=== PATIENT | male | born 1955 | race Caucasian/White ===

== ENCOUNTER 2016-11-19 12:06 | Observation (INO) ==
[2016-11-19] MEDS ORDERED: ASPIRIN 325 MG TABLET PO STA (12:59)
[2016-11-19] MEDS ORDERED: ENOXAPARIN 100 MG/ML SYRINGE SUBCUT STA (12:59)
[2016-11-19 13:18] LABS: Basophils % 0.6 % (0.0-0.8); Eosinophils # 0.3 10*3/uL (0.0-0.87); Eosinophils % 3.7 % (0.00-10.9); Hematocrit 42.1 VOL% (42.0-52.0); Hemoglobin 14.6 GM/DL (14.0-18.0); Immature Granulocytes % 0.3 %; Immature Granulocytes Absolute 0.02 #; Lymphocytes # 1.6 10*3/uL (1.4-4.0); Mean Corpuscular HGB Conc 34.7 GM/DL (32-36); Mean Corpuscular Hemoglobin 30 PG (27-34); Mean Corpuscular Volume 85.1 FL (87-102); Mean Platelet Volume 10.5 FL (9.6-12.0); Monocytes # 0.9 10*3/uL (0.11-0.8); Monocytes % 13.1 % (1.7-12.7); Neutrophils % 58.3 % (38.7-73.9); Platelet Count 195 10*3/uL (130-400); Red Blood Count 4.95 10*6/uL (3.8-5.5); Red Cell Distribution Width 12.5 % (9.3-17.3); White Blood Count 6.8 10*3/uL (4.5-13.71)
[2016-11-19] MEDS ORDERED: ENOXAPARIN 100 MG/ML SYRINGE SUBCUT ONE (13:18)
--- NOTE | 2016-11-19 13:31 | XRay Report ---
XR chest 2V Date: 11/19/2016 1:00 PM History: Chest pain Comparison: 01/08/2011 Technique: PA and lateral chest Findings: The heart is normal in size. The lungs are clear with unremarkable mediastinum. Degenerative changes are noted. Impression: No acute cardiopulmonary pathology identified. PROCEDURE INTERPRETED AT [facility] DEPARTMENT OF RADIOLOGY Final Report Signed by: Dr. Susie Aguilar
[2016-11-19 13:40] LABS: Albumin 3.3 G/DL (3.4-5.0); Bilirubin,Total 0.4 MG/DL (0.2-1.0); Calcium 9.5 MG/DL (8.5-10.1); Magnesium 2.2 MG/DL (1.8-2.4); Osmolality,Calculated 286.5 MOS/KG (273-304); Potassium 4.4 MMOL/L (3.5-5.1); Total Protein 7.3 G/DL (6.4-8.3)
--- NOTE | 2016-11-19 13:59 | Emergency Department Note ---
Catarino Lee Meredith, am scribing for, and in the presence of, Roverto Cantrell MD 12:57. Tamia Lee Phillip K, MD, personally performed the services described in this documentation, ascribed by Pippa Toribio in my presence, and it is both accurate and complete [id number] . Arrival - Arrival Chief Complaint: Chest Pain Stated Complaint: chest pain,left arm tingling,SOB ED Nursing Triage Note: Pt c/o Chest pain, left arm pain/tingling, SOB, and CUTLER x 1 wk. Mode of Arrival: Ambulatory Limitations: No Limitations Source: Patient, Significant other (), RN Notes Reviewed - History of Present Illness HPI Narrative: Pt is a 61 y/o white male reporting to the ED with c/o left-sided chest pain and left arm pain/tingling for the past week. His symptoms are worse at night. Pt confirms exacerbation of chest pain with deep inspiration. He has had diaphoresis, shortness of breath, headache, and pain in bilateral shoulder blades but he denies any nausea, vomiting, cough, or fever. states he has always been a very active person but lately he doesn't want to go do anything and is wanting to take naps during the day. He has a history of HTN, HLD, and GERD. Pt takes ASA daily. Onset (ago): week(s) Allergies/Adverse Reactions: Allergies Allergy/AdvReac Type Severity Reaction Status Date / Time Iodinated Contrast Media - Allergy RASH Verified 11/19/16 12:12 IV Dye chol. Pill? AdvReac Unknown/Unable Uncoded 11/19/16 12:12 to obtain Home Medications: Home Medications Medication Instructions Recorded Confirmed Type Omeprazole [Prilosec] 20 mg PO DAILY 11/19/16 11/19/16 History Pravastatin Sodium 40 mg PO DAILY 11/19/16 11/19/16 History amLODIPine/BENAZEPRIL 5-20 [Lotrel 1 capsule PO DAILY 11/19/16 11/19/16 History 5-20] Review of System - Review of System 12 point system: reviewed and no additional remarkable complaints except as stated - Review of System Constitutional: Present: as per HPI, diaphoresis. Absent: fever Respiratory: Present: as per HPI, other (SOB). Absent: cough Cardiovascular: Present: as per HPI, chest pain Gastrointestinal: Present: as per HPI. Absent: nausea, vomiting Musculoskeletal: Present: as per HPI, arm pain (left arm pain and tingling), other (bilateral shoulder blades) Neurological: Present: as per HPI, headache Medical,Surgical,& Family Hx - Medical History Cardio: History of: Hypertension Endocrine: History of: Dyslipidemia Gastrointestinal: History of: GERD - Social History Smoking Status: Never smoker Exam Vital Signs: Vital Signs Temperature 97.4 F L 11/19/16 12:13 Pulse Rate 68 11/19/16 12:30 Respiratory Rate 18 11/19/16 12:30 Blood Pressure 176/93 11/19/16 12:13 O2 Sat by Pulse Oximetry 99 11/19/16 12:13 - General General appearance: alert, in no apparent distress, obese - Head Head exam: Present: atraumatic, normocephalic - Eye Eye exam: Present: normal appearance, PERRL, EOMI - ENT ENT exam: Present: mucous membranes moist, normal external ear exam - Neck Neck exam: Present: full ROM, trachea midline. Absent: tenderness, meningismus , lymphadenopathy, thyromegaly - Chest Chest inspection: Present: symmetric chest wall rise. Absent: tenderness, rash - Respiratory Respiratory exam: Present: normal lung sounds bilaterally. Absent: respiratory distress - Cardiovascular Cardiovascular exam: Present: regular rate, normal rhythm, normal heart sounds. Absent: murmur, rubs, gallop - Abdominal Exam Abdominal exam: Present: soft, normal bowel sounds. Absent: distention, tenderness - Extremities Exam Extremities exam: Present: full ROM, normal capillary refill. Absent: tenderness, pedal edema, calf tenderness - Back Exam Back exam: Present: full ROM. Absent: tenderness - Neurological Exam Neurological exam: Present: alert, oriented X3, CN II-XII intact. Absent: motor sensory deficit - Psychiatric Psychiatric exam: Present: normal affect, normal mood - Skin Skin exam: Present: warm, dry, intact, normal color Course Course Narrative: Discussed with Dr. Sanon who will evaluate in the ED. Results - Labs CBC & BMP: 11/19/16 13:05 11/19/16 13:05 Lab Results: I have reviewed the patients labs Labs: Laboratory Tests 11/19/16 13:05 WBC 6.8 RBC 4.95 Hgb 14.6 Hct 42.1 MCV 85.1 L Plt Count 195 [place] % (Auto) 13.1 H [place] # (Auto) 0.9 H Laboratory Tests 11/19/16 11/19/16 13:05 13:05 Sodium 139 Potassium 4.4 Chloride 105 Carbon Dioxide 24 BUN 21 H Creatinine 0.90 BUN/Creatinine Ratio 23.00 H Glucose 231 H Troponin I < 0.015 Albumin 3.3 L Globulin 4.0 H Albumin/Globulin Ratio 0.8 L - EKG EKG results: interpreted by MONI, sinus rhythm (nonspecific ST-T changes) - Diagnostic Findings Procedure: Chest x-ray: report reviewed by me (No evidence of acute cardiopulmonary pathology identified. ) Disposition Clinical Impression: Chest pain, possible unstable angina Case discussed with: patient Disposition: Still a Patient Condition: Guarded Additional Instructions: Admit to cardiology for further evaluation.
[2016-11-19] MEDS ORDERED: MAGNESIUM SULF RIDER 4 GM in PREMIX 1 EACH IV PRN (14:35)
[2016-11-19] MEDS ORDERED: BISACODYL 5 MG TABLET PO PRN (14:35)
[2016-11-19] MEDS ORDERED: ZALEPLON 5 MG CAPSULE PO PRN (14:35)
[2016-11-19] MEDS ORDERED: DOCUSATE SODIUM 100 MG CAPSULE PO PRN (14:35)
[2016-11-19] MEDS ORDERED: MAGNESIUM SULF RIDER 2 GM in PREMIX 1 EACH IV PRN ×2 (14:35→15:18)
[2016-11-19] MEDS ORDERED: ACETAMINOPHEN 325 MG TABLET PO PRN (14:35)
[2016-11-19] MEDS ORDERED: ONDANSETRON 4 MG/2 ML VIAL IV PRN (14:35)
--- NOTE | 2016-11-19 15:15 | Cardiology History & Physical ---
<Marsha Bradley E - Last Filed: 11/19/16 15:45> Assessment and Plan - Time spent with patient Time spent with patient: Greater than 30 minutes (1) Hypertension Status: Chronic Assessment and plan: Will monitor BP and adjust meds accordingly Current Visit: Yes (2) Dyslipidemia Status: Chronic Assessment and plan: FLP in the am Current Visit: Yes (3) Fatigue Status: Chronic Assessment and plan: Start with LHC in the mroning, sleep study eval and basic labs Current Visit: Yes (4) Sleep disorder Status: Chronic Assessment and plan: Consult sleep medicine Current Visit: Yes (5) MCARTHUR (dyspnea on exertion) Status: Acute Assessment and plan: Worrisome for anginal component. LHC in the morning Current Visit: Yes (6) Chest pain Status: Acute Assessment and plan: Currently chest pain free Current Visit: Yes History of Present Illness Chief complaint: chest pain, SOB History of present illness: Mr. Jose is a 61 year old male previously seen by Dr. Velasquez. Risk factors include: hypertension, dyslipidemia and significant family history of premature CAD. LHC approximately 2003 - negative for obstructive disease. Patient is being seen in the ER of [facility]. For the past 2 - 3 weeks, patient has been experiencing severe fatigue and MCARTHUR with exertion. He is unable to walk to and form his mailbox (less than 100yards ) without experiencing significant SOB requiring rest. He is normally very active and usually has "energy for days." He has been experiencing chest pain at various times of the day and night. Discomfort is described as tight and grabbing. There is no radiation and can identify no aggravating nor any alleviating factors. Rates as 7 on a scale of 1-10. He is currently chest pain free. Often located in the left chest and often located in his upper back and neck. Walking may or may not recreate the discomfort but there is no particular pattern in general. Usually lasts seconds to minutes. No nausea or diaphoresis associated with the discomfort. He has begun to experience tingling sensation left hand and occasionally right hand. "As if my hands are going numb." Left trapezius muscle has been particularly sore and spasms frequently. His cardiac biomarkers are negative and EKG unremarkable. Patient has numerous other complaints including severe, limiting fatigue. Again , this has only occurred over the past several weeks. He thought he had the flu several weeks ago but was never tested. He had fever 103F by report, chills , coughing thick yellow sputum. He is initially improved after three days and a different type of fatigue occurred. is present and acknowledges he snores extremely loud, holds his breathe frequently while sleeping and she "nudges" him in order to wake him to breathe. He wakes with head-aches frequently. Weight gain over the past several weeks. History of recurrent UTI. Sees Dr. Bowers. At this time, Dr. Calderon is seeing patient and recommends [facility]. Patient and are agreeable. We will admit and plan to proceed in the morning. IVP Dye allergy includes itchy rash. Will pre-treat. Echo has been ordered. Basic labs including TSH, UA and BC x 2. Sleep Medicine consultation. Home Medications Medication Instructions Recorded Confirmed Type Omeprazole [Prilosec] 20 mg PO DAILY 11/19/16 11/19/16 History Pravastatin Sodium 40 mg PO DAILY 11/19/16 11/19/16 History amLODIPine/BENAZEPRIL 5-20 [Lotrel 1 capsule PO DAILY 11/19/16 11/19/16 History 5-20] Allergies Allergy/AdvReac Type Severity Reaction Status Date / Time Iodinated Contrast Media - Allergy RASH Verified 11/19/16 12:12 IV Dye chol. Pill? AdvReac Unknown/Unable Uncoded 11/19/16 12:12 to obtain - Constitutional Constitutional: Present: daytime sleepiness, fatigue, headache(s), weight gain. Absent: frequent falls - EENT Eyes: Absent: blurry vision, loss of vision Ears: Absent: decreased hearing, ear pain Nose, mouth and throat: Present: headache(s), nasal congestion. Absent: sinus pressure - Cardiovascular Cardiovascular: Present: chest pain at rest, chest pain with activity, dyspnea on exertion. Absent: edema, palpitations - Respiratory Respiratory: Present: dyspnea, dyspnea on exertion. Absent: pain on inspiration - Gastrointestinal Gastrointestinal: Present: bloating. Absent: abdominal pain, heartburn, nausea - Genitourinary Genitourinary: Absent: difficulty urinating, dysuria, flank pain, nocturia - Musculoskeletal Musculoskeletal: Present: back pain - Neurological Neurological: Present: headache(s). Absent: abnormal gait, abnormal speech, frequent falls - Psychiatric Psychiatric: Absent: anxiety, depression - Endocrine Endocrine: Present: fatigue. Absent: heat intolerance, polydipsia - Hematologic/Lymphatic Hematologic/Lymphatic: Absent: easy bleeding, easy bruising, lymphadenopathy Medical,Surgical,& Family Hx - Medical History Cardio: History of: Hypertension Endocrine: History of: Dyslipidemia Gastrointestinal: History of: GERD - Social History Smoking Status: Never smoker Have you smoked in the last 12 months: No Frequency of Alcohol Use: None Type of Drug Use: None Marital Status: Lives With:: Spouse Functional capacity: independent ambulation Cardiology Physical Exam - Constitutional Vitals: Vital Signs Temp Pulse Resp BP Pulse Ox 97.4 F L 68 18 176/93 99 11/19/16 12:13 11/19/16 12:30 11/19/16 12:30 11/19/16 12:13 11/19/16 12:13 Intake and Output 11/18/16 11/19/16 11/19/16 23:59 07:59 15:59 Other: Weight 99.79 kg Patient Weight 11/19/16 23:59 Weight 99.79 kg General appearance: normal weight, no acute distress - Head Head exam: Present: normocephalic, atraumatic - Eye Eye exam: Present: EOMI, conjunctival injection Pupils: Present: RENÉ, normal accommodation - ENT ENT exam: Present: normal external ear exam, normal oropharynx - Neck Neck exam: Absent: lymphadenopathy, meningismus, tenderness, thyromegaly - Respiratory Respiratory exam: Present: clear to auscultation bilaterally. Absent: accessory muscle use, chest wall tenderness - Cardiovascular Cardiovascular exam: Present: regular rate and rhythm. Absent: carotid bruit, JVD, systolic murmur - GI/Abdominal GI/Abdominal exam: Present: normal bowel sounds, soft. Absent: tenderness - Extremities Exam Extremities exam: Present: normal capillary refill, full ROM. Absent: calf tenderness, edema - Back Exam Back exam: Absent: CVA tenderness (L), CVA tenderness (R) - Neurological Exam Neurological exam: Present: alert, oriented X3, normal gait - Psychiatric Psychiatric exam: Present: normal affect, normal mood - Skin Skin exam: Present: warm, dry. Absent: rash Result/EKG - Labs CBC & BMP: 11/19/16 13:05 11/19/16 13:05 Lab Results: I have reviewed the past 24 hour labs Labs: Laboratory Results - last 24 hr 11/19/16 11/19/16 11/19/16 13:05 13:05 13:05 WBC 6.8 RBC 4.95 Hgb 14.6 Hct 42.1 MCV 85.1 L MCH 30 MCHC 34.7 RDW 12.5 Plt Count 195 MPV 10.5 Neut % (Auto) 58.3 Lymph % (Auto) 24.0 Casey % (Auto) 13.1 H Eos % (Auto) 3.7 Baso % (Auto) 0.6 Neut # (Auto) 4.0 Lymph # (Auto) 1.6 Casey # (Auto) 0.9 H Eos # (Auto) 0.3 Baso # (Auto) 0.0 Immature Gran % 0.3 Nucleated RBC % 0.0 Immature Gran # 0.02 Nucleated RBCs # 0.00 Sodium 139 Potassium 4.4 Chloride 105 Carbon Dioxide 24 Anion Gap 14.4 BUN 21 H Creatinine 0.90 GFR Calculation 118 BUN/Creatinine Ratio 23.00 H Glucose 231 H Calculated Osmolality 286.5 Calcium 9.5 Magnesium 2.2 Total Bilirubin 0.40 AST 23 ALT 28 Alkaline Phosphatase 97 Troponin I < 0.015 Total Protein 7.3 Albumin 3.3 L Globulin 4.0 H Albumin/Globulin Ratio 0.8 L - Diagnostic Findings Procedure: Chest x-ray: report reviewed by me - EKG EKG results: interpreted by tx EKG shows: sinus rhythm <Juan Ramon Calderon - Last Filed: 11/19/16 16:53> History of Present Illness History of present illness: I have seen, interviewed, examined the patient and reviewed his chart and discussed the case with the mid-level provider and agree with the plan as outlined in the note. Cardiology Physical Exam - Constitutional Vitals: Vital Signs Temp Pulse Resp BP Pulse Ox 97.4 F L 67 16 131/87 97 11/19/16 12:13 11/19/16 15:14 11/19/16 15:14 11/19/16 15:14 11/19/16 15:14 Intake and Output 11/19/16 11/19/16 11/19/16 07:59 15:59 23:59 Other: Weight 99.79 kg Patient Weight 11/19/16 23:59 Weight 99.79 kg Result/EKG - Labs CBC & BMP: 11/19/16 13:05 11/19/16 13:05 Labs: Laboratory Results - last 24 hr 11/19/16 11/19/16 11/19/16 13:05 13:05 13:05 WBC 6.8 RBC 4.95 Hgb 14.6 Hct 42.1 MCV 85.1 L MCH 30 MCHC 34.7 RDW 12.5 Plt Count 195 MPV 10.5 Neut % (Auto) 58.3 Lymph % (Auto) 24.0 Casey % (Auto) 13.1 H Eos % (Auto) 3.7 Baso % (Auto) 0.6 Neut # (Auto) 4.0 Lymph # (Auto) 1.6 Casey # (Auto) 0.9 H Eos # (Auto) 0.3 Baso # (Auto) 0.0 Immature Gran % 0.3 Nucleated RBC % 0.0 Immature Gran # 0.02 Nucleated RBCs # 0.00 Sodium 139 Potassium 4.4 Chloride 105 Carbon Dioxide 24 Anion Gap 14.4 BUN 21 H Creatinine 0.90 GFR Calculation 118 BUN/Creatinine Ratio 23.00 H Glucose 231 H Calculated Osmolality 286.5 Calcium 9.5 Magnesium 2.2 Total Bilirubin 0.40 AST 23 ALT 28 Alkaline Phosphatase 97 Troponin I < 0.015 B-Natriuretic Peptide Total Protein 7.3 Albumin 3.3 L Globulin 4.0 H Albumin/Globulin Ratio 0.8 L TSH 3rd Generation 11/19/16 11/19/16 13:05 13:05 WBC RBC Hgb Hct MCV MCH MCHC RDW Plt Count MPV Neut % (Auto) Lymph % (Auto) Casey % (Auto) Eos % (Auto) Baso % (Auto) Neut # (Auto) Lymph # (Auto) Casey # (Auto) Eos # (Auto) Baso # (Auto) Immature Gran % Nucleated RBC % Immature Gran # Nucleated RBCs # Sodium Potassium Chloride Carbon Dioxide Anion Gap BUN Creatinine GFR Calculation BUN/Creatinine Ratio Glucose Calculated Osmolality Calcium Magnesium Total Bilirubin AST ALT Alkaline Phosphatase Troponin I B-Natriuretic Peptide 4 Total Protein Albumin Globulin Albumin/Globulin Ratio TSH 3rd Generation 1.610
[2016-11-19] MEDS ORDERED: DIAZEPAM 5 MG TABLET PO ONE (15:18)
[2016-11-19] MEDS ORDERED: POTASSIUM CHLORIDE RIDER 10 MEQ in PREMIX 1 EACH IV PRN (15:18)
[2016-11-19] MEDS ORDERED: diphenhydrAMINE CAP 25 MG CAPSULE PO ONE (15:18)
[2016-11-19] MEDS ORDERED: methylPREDNISolone SOD SUC 125 MG/2 ML VIAL IV SCH (15:30)
[2016-11-19] MEDS ORDERED: diphenhydrAMINE CAP 25 MG CAPSULE PO STA (15:31)
--- NOTE | 2016-11-19 18:15 | EKG Report ---
Stationary ECG Study [facility] ER Test Date: 11/19/2016 6:14:41 PM Pat Name: STEVEN ZAMUDIO Department: Room: Gender: M Licensed Occupational Therapist: TEE : 1955 Requested by: Roverto Lam Order Number: [id number] Reading MD: EILEEN PERALTA Intervals [place] Rate: 64 P: 55 SC: 199 QRS: -31 QRSD: 109 T: 45 QT: 363 QTc: 372 Interpretive Statements SINUS RHYTHM MARKED LEFT AXIS DEVIATION Electronically Signed On 11-19-16 21:00:08 [employer] by EILEEN PERALTA [email or web address]
[2016-11-19] MEDS ORDERED: PRAVASTATIN 40 MG TABLET PO SCH (21:00)
[2016-11-19] MEDS: SODIUM CHLORIDE 0.45% 1,000 ML IV SCH (21:06)
[2016-11-19] MEDS: predniSONE 20 MG TABLET PO SCH (21:07)
[2016-11-19] MEDS: FAMOTIDINE 20 MG TABLET PO SCH (21:07)
[2016-11-19] MEDS: ENOXAPARIN 40 MG/0.4 ML SYRINGE SUBCUT SCH (23:40)
[2016-11-20] MEDS ORDERED: INFLUENZA VIRUS VACCINE 0.5 ML SYRINGE IM ONE (02:05)
[2016-11-20 05:47] LABS: Apearance,Urine CLEAR (Clear); Bilirubin,Urine Negative (Negative); Blood, Urine Small mg/dL (Negative); Glucose,Urine (UA) Negative (Negative); Ketones,Urine Negative (Negative); Nitrite,Urine Negative (Negative); Protein,Urine Negative; RBC,Urine 2 /HPF (0-4); Squamous Epithelial Cell,Urine Occasional /HPF (0-10); Urine Color Yellow (Yellow); Urine Specific Gravity 1.012 (1.001-1.035); WBC,Urine <1 /HPF (0-6)
--- NOTE | 2016-11-20 05:59 | EKG Report ---
Stationary ECG Study [facility] ER Test Date: 11/19/2016 12:14:35 PM Pat Name: STEVEN ZAMUDIO Department: Room: 288 Gender: M Director Of Home Health Services: Nasim Tolbert : 1955 Requested by: Roverto Lam Order Number: [id number] Reading MD: CODY STACY Intervals [place] Rate: 71 P: 55 MS: 190 QRS: -36 QRSD: 108 T: 57 QT: 358 QTc: 380 Interpretive Statements SINUS RHYTHM LEFT AXIS DEVIATION IVCD Electronically Signed On 11-20-16 09:05:30 [employer] by CODY STACY [email or web address]
[2016-11-20 06:06] LABS: Basophils % 0.3 % (0.0-0.8); Eosinophils # 0.3 10*3/uL (0.0-0.87); Eosinophils % 4.5 % (0.00-10.9); Hematocrit 39.2 VOL% (42.0-52.0); Hemoglobin 13.5 GM/DL (14.0-18.0); Immature Granulocytes % 0.5 %; Immature Granulocytes Absolute 0.03 #; Lymphocytes # 1.6 10*3/uL (1.4-4.0); Lymphocytes % 25.6 % (21.2-54.2); Mean Corpuscular HGB Conc 34.4 GM/DL (32-36); Mean Corpuscular Hemoglobin 29 PG (27-34); Mean Corpuscular Volume 84.1 FL (87-102); Mean Platelet Volume 11.2 FL (9.6-12.0); Monocytes # 0.8 10*3/uL (0.11-0.8); Monocytes % 12.3 % (1.7-12.7); Neutrophils # 3.6 10*3/uL (1.4-7.4); Neutrophils % 56.8 % (38.7-73.9); Platelet Count 202 10*3/uL (130-400); Red Blood Count 4.66 10*6/uL (3.8-5.5); Red Cell Distribution Width 12.7 % (9.3-17.3); White Blood Count 6.3 10*3/uL (4.5-13.71)
[2016-11-20 06:40] LABS: Albumin 2.9 G/DL (3.4-5.0); Bilirubin,Total 0.5 MG/DL (0.2-1.0); Calcium 8.6 MG/DL (8.5-10.1); Osmolality,Calculated 282.5 MOS/KG (273-304); Potassium 5.6 MMOL/L (3.5-5.1); Risk Ratio 7.87; Total Protein 6.9 G/DL (6.4-8.3); VLDL CHOLESTEROL 154.2 MG/DL
--- NOTE | 2016-11-20 07:19 | Sleep Medicine Consult ---
Assessment and Plan (1) Unspecified sleep apnea Status: Acute Assessment and plan: His symptoms are very suspicious for sleep apnea. With the severity of his sleepiness and his history of hypertension in nocturia, sleep evaluation is indicated. Nocturia can be seen with sleep apnea and often remits or improves with CPAP therapy. Untreated sleep apnea can also be associated with a high risk of cardiovascular morbidity and mortality. I reviewed the Hurd data from Lancet 2004 with the patient to their understanding. This study proved significant reduction in the risk of fatal and nonfatal cardiac events in patients with severe obstructive sleep apnea compliant with CPAP, in comparison with those noncompliant with CPAP for severe sleep apnea. The patient was not completely agreeable to sleep evaluation but his will encourage him to proceed. I explained sleep apnea in terms that he could understand and he is aware of the risks of untreated sleep apnea. We will be happy to evaluate him and treated if problems are found. Thank you for this consult Current Visit: Yes (2) Hypertension Status: Chronic Assessment and plan: The prevalence rate for obstructive sleep apnea patients with hypertension is 35 %. That rate can be as high as 80% in patients who require 4 or more medications for blood pressure control. Current Visit: Yes History of Present Illness Chief complaint: sleep apnea History of present illness: Mr. Jose is a 61 year old male admitted with chest pain. He has a history of loud snoring and abnormal breathing during his sleep. His suspects that he stops breathing during his sleep. He has significant problems with daytime fatigue and sleepiness as well, having an [place]wood sleepiness score of over 11. He usually retires around 10 p.m. and will awaken about 6 in the morning. He awakens almost every 2 hours to urinate. He is unrefreshed and sleepy during the day and easily falls asleep while sitting and reading, watching television, sitting down after lunch, or while laying down to rest. He does have some discomfort of his legs as well. He has no family history of sleep disorders. Home Medications Medication Instructions Recorded Confirmed Type Omeprazole [Prilosec] 20 mg PO DAILY 11/19/16 11/19/16 History Pravastatin Sodium 40 mg PO DAILY 11/19/16 11/19/16 History amLODIPine/BENAZEPRIL 5-20 [Lotrel 1 capsule PO DAILY 11/19/16 11/19/16 History 5-20] Allergies Allergy/AdvReac Type Severity Reaction Status Date / Time Iodinated Contrast Media - Allergy RASH Verified 11/19/16 12:12 IV Dye chol. Pill? AdvReac Unknown/Unable Uncoded 11/19/16 12:12 to obtain Review of systems: Otherwise unremarkable from a sleep standpoint. Exam (Pulmonay) H&P - Constitutional Vitals: Period Temp Pulse Resp BP Sys/Vaughn Pulse Ox Last 24 Hr 96.5 F-98.2 F 61-78 16-20 131-158/74-93 93-97 Exam: He is alert and responsive in no acute distress. Pupils equal round reactive to light and accommodation. Extraocular movements intact. Oropharynx with class IV Mallampati exam. Neck is supple without adenopathy or thyromegaly. No supraclavicular adenopathy is noted. Chest with symmetrical breath sounds without focal wheezes rhonchi or rales. Cardiac exam reveals a regular rhythm without murmur or gallop. Abdomen soft nontender without palpable hepatosplenomegaly or mass. Extremities are without clubbing cyanosis or edema. Neurologically, he is grossly intact. He moves all extremities with good strength. Medical,Surgical,& Family Hx - Medical History Cardio: History of: Hypertension Endocrine: History of: Dyslipidemia Comment Only: Endocrine Problems (diabetic) Genitourinary: Comment Only: Recurring Urinary Tract Infections (recurring bladder infections) Gastrointestinal: History of: GERD - Surgical History Orthopedic Surgeries: Surgical HX of;: Orthopedic Surgery (left knee surgery, rt ankle) - Family History Family History: Reports;: Family Diabetes (father, brother), Family Heart Disease (father-cabg, brother-cabg, brother-stents) - Social History Smoking Status: Never smoker Frequency of Alcohol Use: None Type of Drug Use: None Results - Labs CBC & BMP: 11/20/16 05:49 11/20/16 05:49 Lab Results: I have reviewed the past 24 hour labs
[2016-11-20] MEDS ORDERED: FAMOTIDINE 20 MG TABLET PO ONE (07:29)
[2016-11-20] MEDS ORDERED: diphenhydrAMINE CAP 50 MG CAPSULE PO ONE (08:12)
[2016-11-20] MEDS ORDERED: RANITIDINE 150 MG TABLET PO ONE (08:12)
[2016-11-20] MEDS ORDERED: HEPARIN/NACL 0.9% 2 UNITS/ML 1,000 ML IV ONE (08:13)
[2016-11-20] MEDS ORDERED: LIDOCAINE 1% 20 ML VIAL ONE (08:13)
[2016-11-20] MEDS ORDERED: DIAZEPAM 5 MG TABLET PO ONE (08:13)
[2016-11-20] MEDS: predniSONE 20 MG TABLET PO SCH (08:35)
[2016-11-20] MEDS: SODIUM CHLORIDE 0.45% 1,000 ML IV SCH (08:35)
[2016-11-20] MEDS: FAMOTIDINE 20 MG TABLET PO SCH (08:38)
[2016-11-20] MEDS ORDERED: HYDROmorphone 2 MG/1 ML VIAL ONE (08:56)
[2016-11-20] MEDS ORDERED: VERAPAMIL 5 MG/2 ML VIAL ONE (08:56)
[2016-11-20] MEDS ORDERED: NITROGLYCERIN DRIP 50 MG/250 ML BOTTLE IV ONE (08:56)
[2016-11-20] MEDS ORDERED: MIDAZOLAM 2 MG/2 ML VIAL ONE (08:56)
[2016-11-20] MEDS ORDERED: PANTOPRAZOLE 40 MG TABLET PO SCH ×2 (09:00)
[2016-11-20] MEDS ORDERED: ASPIRIN 325 MG TABLET ONE (09:09)
[2016-11-20] MEDS ORDERED: ENOXAPARIN 60 MG/0.6 ML SYRINGE ONE (09:49)
--- NOTE | 2016-11-20 10:11 | Cardiac Catheterization ---
Date of Procedure:: 11/20/16 Post-op diagnosis: same Procedure: CLINICAL HISTORY: Please see the scanned history and physical. The patient presented with exertional dyspnea and chest pain symptoms with multiple cardiac risk factors and is undergoing cardiac catheterization for definitive coronary artery assessment and possible revascularization. PROCEDURES PERFORMED: 1. Right radial percutaneous arteriotomy 2. Left heart catheterization 3. Resting hemodynamics 4. Left ventriculography. 5. Coronary arteriography 6. Hemoband placement DESCRIPTION OF PROCEDURE: After obtaining informed consent, the patient was taken to the cathead operator, prepped and draped in the usual sterile manner. We accessed the right radial artery using modified Seldinger technique in the usual fashion. We placed a 6-Hebrew slim sheath without difficulty. We then used a Tig catheter to engage the right coronary and left main coronary arteries to perform angiography in multiple orthogonal views. There were no problems or complications during the procedure. We then used an angled pigtail catheter to perform a left heart catheterization with left ventriculogram and pressure measurement in the usual fashion. After removing the catheter, we placed a HemoBand and removed the sheath without difficulty. There were no problems during the case. HEMODYNAMICS: Please see the accompanying data sheet. CORONARIES: The left main coronary artery is a moderate size vessel which bifurcates into the left anterior descending and left circumflex coronary arteries. There is a 30% ostial left main tapering. The left circumflex coronary artery is a moderate size vessel which gives off a moderate first obtuse marginal branch and a small second obtuse marginal branch. There are some diffuse luminal irregularities in the circumflex system of up to 30-40% but no focal high-grade disease is seen. The left anterior descending is a moderate size vessel which stops short of the apex and gives off a moderate-sized diagonal branch. There are some mild luminal irregularities in the left anterior descending system but no significant focal disease is seen. The right coronary artery is a large somewhat ectatic vessel which gives off the posterior descending artery and a posterolateral system. There are diffuse mild nonobstructive luminal irregularities in this vessel. LEFT VENTRICULOGRAPHY: Left ventriculogram shows left ventricular ejection fraction of greater than 65% with normal regional wall motion. IMPRESSION: 1. Mild nonobstructive coronary artery disease as described above. 2. Preserved left ventricular systolic function with normal left ventricular end-diastolic pressure. PLAN: I don't see any source for the patient's exertional dyspnea and chest pain on cardiac catheterization. He does have symptoms of obstructive sleep apnea and Dr. Melendez is going to be working this up. I think he can be discharged home later today. I would like to get an outpatient 24-hour Holter monitor to make sure he appears to have normal chronotropic competence. He can follow-up with Dr. Velasquez in about a week to review these results. Anesthesia: minimal conscious sedation Surgeon / Physician: Juan Ramon Calderon Estimated blood loss: minimal Condition: stable Disposition: floor - Discharge Disposition: Disch To Home/Self Care - Medications / Follow-up Referrals: Pollo Velasquez MD [Physician] - (Approximately 1 week with CBC, CMP, Holter, Echo)
--- NOTE | 2016-11-20 12:19 | Discharge Summary ---
Addendum entered and electronically signed by Marsha Bradley NP 11/20/16 16: 35: Patient will be discharged on 40mg Pravastatin rather than previously stated 80mg. Pharmacist at [facility] "Christian" has been notified. Can consider increasing outpatient or switch to Crestor which may provide better treatment of trigs than Pravastatin. New: Gemfibrozil 600mg orally BID. Original Note: Hospital Course - Hospital Course Hospital Course: Mr. Jose, 61-year-old male, previously followed by Dr. Velasquez. He presented to the emergency department at [facility] 11/19/2016 with complaints of shortness of breath, severe fatigue limiting his daily activities, chest pain. Cardiac biomarkers were negative. He was scheduled for, and underwent, elective cardiac catheterization performed by Dr. Juan Ramon Calderon 11/20/2016. Identified was no obstructive coronary artery disease. He was returned to the telemetry unit in stable condition. He was monitored in the postoperative phase without complications. His right radial approach revealed no evidence of hematoma or bruit. Capillary refill less than [address] Melendez was consulted for evaluation of sleep disorder. It is felt that he may have a severe sleep apnea. He was counseled regarding need for outpatient testing. He is considering but has not committed to follow-up at this time. He has been given a follow-up appointment with Dr. Melendez to further discuss. Having felt he met maximal medical therapy, patient is being discharged home in stable condition. He's been given a follow-up appointment with Dr. Velasquez in one with the following labs: BMP, Magnesium and CBC. That visit, holter monitor has been recommended for consideration to evaluate his chronotropic competence per Dr. Calderon. Patient has been instructed to resume all preadmission medications. New include: Fenofibrate 600mg orally BID. Pravastatin increased to 80mg orally each evening. TC: 236 Trigs 771 LDL 125 HDL 30 Patient was treated for IVP Dye allergy prior to and after [facility] and tolerated without problems. - Time spent with patient Time with patient DS: Less than 30 minutes Diagnosis - Discharge Diagnosis (1) Hypertension Status: Chronic (2) Dyslipidemia Status: Chronic (3) Fatigue Status: Chronic (4) Sleep disorder Status: Chronic (5) MCARTHUR (dyspnea on exertion) Status: Chronic (6) Chest pain Status: Resolved Specialty Discharge - Follow Up or Referrals Follow up with: Pollo Velasquez MD [Physician] - 1 Week (FOR LAB AT [facility] ON 11/29/16 AT 8:15 ( CBC AND CMP ) SEE DR. VELASQUEZ ON 12/03/16 AT 9:20 AT [facility] AND WILL DISCUSS AT THAT TIME FOR EVENT MONITOR.) Discharge Plan - Discharge Data Disposition: Disch To Home/Self Care Condition at Discharge: Stable Discharge Diet: advance to your usual diet Activity: other (post-cath expectations) Hygiene: no restrictions Weight Bearing at Discharge: other (post-cath expectations) Driving: other (post Expectations) Contact your physician if you experience:: fever over 101, Difficulty voiding, Redness or swelling, Nausea/Vomiting, Shortness of breath, Bleeding, pain uncontrolled by pain medications - Discharge Medications New Aspirin EC Tab 81 mg PO DAILY #30 tablet Gemfibrozil [Lopid] 600 mg PO BIDAC #60 tablet Pravastatin [Pravachol] 80 mg PO BEDTIME #30 tablet Continue amLODIPine/BENAZEPRIL 5-20 [Lotrel 5-20] 1 capsule PO DAILY Omeprazole [Prilosec] 20 mg PO DAILY Discontinued Pravastatin Sodium 40 mg PO DAILY - Follow Up or Referral Follow Up: Pollo Velasquez MD [Physician] - 1 Week (FOR LAB AT [facility] ON 11/29/16 AT 8:15 ( CBC AND CMP ) SEE DR. VELASQUEZ ON 12/03/16 AT 9:20 AT [facility] AND WILL DISCUSS AT THAT TIME FOR EVENT MONITOR.) - Forms/Instructions Exam - Constitutional Vitals: Period Temp Pulse Resp BP Sys/Vaughn Pulse Ox Last 24 Hr 96.5 F-98.2 F 61-78 16-20 125-167/70-93 93-97 Exam: General: Appears well with no apparent distress. Pleasant and cooperative. Appears comfortable. HEENT: PERRL, normocephalic, atraumatic. Mucous membranes moist. No jaundice noted. Conjunctiva moist and clear, sclerae anicteric Neck: No JVD/HJR, no thyromegaly or lymphadenopathy noted. No carotid bruit appreciated Cardiac: Regular rate and rhythm. No murmur rub or gallop. Lungs: Clear to auscultation without accessory muscle use to assist the respiratory pattern. Not requiring oxygen. Abdomen: Soft, bowel sounds normoactive. Nontender and nondistended. No abdominal bruit or thrill noted. No masses noted. Musculoskeletal: No fluid collection. Decreased range of motion is noted. Extremities: Right radial area reveals no evidence of hematoma or bruit. No clubbing, cyanosis noted. No edema noted. Upper extremity pulses 2+. Lower extremity pulses 2+. Capillary refill less than 3 seconds. Skin: No unusual lesions or rashes. No skin breakdown appreciated. Neuro: Awake, alert and oriented 3. Moves all extremities well without hemiparesis or paralysis. No essential tremor is appreciated. Discharge Results Procedures and tests throughout hospitalization: Pending Orders 11/20/16 07:01 CL heart Routine Labs on day of discharge: Labs from last 24 hours 11/20/16 11/20/16 11/20/16 07:53 05:49 05:49 WBC 6.3 RBC 4.66 Hgb 13.5 L Hct 39.2 L MCV 84.1 L MCH 29 MCHC 34.4 RDW 12.7 Plt Count 202 MPV 11.2 Neut % (Auto) 56.8 Lymph % (Auto) 25.6 [place] % (Auto) 12.3 Eos % (Auto) 4.5 Baso % (Auto) 0.3 Neut # (Auto) 3.6 Lymph # (Auto) 1.6 [place] # (Auto) 0.8 Eos # (Auto) 0.3 Baso # (Auto) 0.0 Immature Gran % 0.5 Nucleated RBC % 0.0 Immature Gran # 0.03 Nucleated RBCs # 0.00 Sodium 139 Potassium 5.6 H Chloride 107 Carbon Dioxide 25 Anion Gap 12.6 BUN 16 Creatinine 0.80 GFR Calculation 124 BUN/Creatinine Ratio 20.00 Glucose 192 H POC Glucose 187 H Calculated Osmolality 282.5 Calcium 8.6 Total Bilirubin 0.50 AST 54 H ALT 31 Alkaline Phosphatase 91 Troponin I Total Protein 6.9 Albumin 2.9 L Globulin 4.0 H Albumin/Globulin Ratio 0.7 L Triglycerides 771 H Cholesterol 236 H LDL Cholesterol 125.0 VLDL Cholesterol 154.2 HDL Cholesterol 30 L Heart Disease Risk Ratio 7.87 11/19/16 11/19/16 19:44 18:19 WBC RBC Hgb Hct MCV MCH MCHC RDW Plt Count MPV Neut % (Auto) Lymph % (Auto) [place] % (Auto) Eos % (Auto) Baso % (Auto) Neut # (Auto) Lymph # (Auto) [place] # (Auto) Eos # (Auto) Baso # (Auto) Immature Gran % Nucleated RBC % Immature Gran # Nucleated RBCs # Sodium Potassium Chloride Carbon Dioxide Anion Gap BUN Creatinine GFR Calculation BUN/Creatinine Ratio Glucose POC Glucose Calculated Osmolality Calcium Total Bilirubin AST ALT Alkaline Phosphatase Troponin I < 0.015 < 0.015 Total Protein Albumin Globulin Albumin/Globulin Ratio Triglycerides Cholesterol LDL Cholesterol VLDL Cholesterol HDL Cholesterol Heart Disease Risk Ratio - Imaging and Cardiology Cardiology Procedure: report reviewed by me Procedure: Chest x-ray: report reviewed by me DS: Provider Date of admission: 11/19/16 14:35 Primary care physician: Manny Lagunas MD Attending physician on admission: See Sanon MD Consults: 11/19/16 15:34 Consult to Pharmacy [CONS] Routine Reason for Pharmacy Consult: Adjust Meds Renal Funct Discharging clinician: Marsha Bradley NP Expected date of discharge: 11/20/16
[2016-11-20] MEDS: ENOXAPARIN 40 MG/0.4 ML SYRINGE SUBCUT SCH (14:24)
[2016-11-20 15:32] VITALS: BP 127/65
[2016-11-20] MEDS ORDERED: GEMFIBROZIL 600 MG TABLET PO SCH (16:30)
[2016-11-20] MEDS ORDERED: PRAVASTATIN 40 MG TABLET PO SCH (21:00)
[2016-11-21] MEDS ORDERED: ASPIRIN EC 81 MG TABLET PO SCH (09:00)
--- NOTE | 2016-11-21 21:20 | ECHO Report ---
Nikolay Jose Exam Date: 11/19/2016 16:01 Referring Physician: Technologist: Alivia Harmon RDCS Age: 61 Ht (in): Wt (lb): Gender: M Exam Location: [facility] Echo Indications: Chest pain, unspecified, Shortness of breath, Essential (primary) hypertension, Other fatigue, Dyslipidemia, Left arm tingling, Sleep disorder BP: / HR: Rhythm: Sinus Technical Quality: Technically difficult study IMPRESSIONS Technically difficult study. Left ventricular ejection fraction is estimated at 50 %. Mild left atrial enlargement.There is trace mitral regurgitation. Trace tricuspid valve regurgitation. MEASUREMENTS (Male / Female) Normal Values 2D ECHO LV Diastolic Diameter PLAX 5.4 cm 4.2 - 5.9 / 3.9 - 5.3 cm LV Systolic Diameter PLAX 4.0 cm LV Fractional Shortening PLAX 26.9 % IVS Diastolic Thickness 1.0 cm 0.6 - 1.0 / 0.6 - 0.9 cm LVPW Diastolic Thickness 1.0 cm 0.6 - 1.0 / 0.6 - 0.9 cm RV Internal Dim ED PLAX 3.7 cm Aortic Root Diameter 3.4 cm LA Systolic Diameter LX 4.1 cm 3.0 - 4.0 / 2.7 - 3.8 cm DOPPLER TR Peak Velocity 216.0 cm/s TR Peak Gradient 18.7 mmHg FINDINGS Left Ventricle Normal left ventricular cavity size. Normal left ventricular wall thickness. Left ventricular ejection fraction is estimated at 50 %. Right Ventricle The right ventricle is normal in size and function. Right Atrium The right atrium is normal in size. Left Atrium Mild atrial enlargement in apical view (elongated LA). Mitral Valve Morphologically normal mitral valve without significant stenosis or prolapse. There is trace mitral regurgitation. Aortic Valve Morphologically normal aortic valve without significant sclerosis or stenosis. There is no aortic regurgitation. Tricuspid Valve Morphologically normal tricuspid valve. Trace tricuspid valve regurgitation. Tricuspid regurgitation velocities suggest a PAP of 29 mmHg. Pulmonic Valve Morphologically normal pulmonic valve without significant stenosis. There is no pulmonic regurgitation. Pericardium Normal pericardium without effusion. Aorta Normal ascending aorta dimension. Juan Ramon Calderon (Electronically Signed) Final Date: 21 November 2016 21:19
== END 2016-11-20 17:44 | disposition home or self-care (01) ==
LOC: N.EDINP 12:06 → N.ED 12:06 → N.TELEN 19:16
PROVIDERS: ADMIT Internal Medicine Clinical Cardiac Electrophysiology; ATTEND Internal Medicine Clinical Cardiac Electrophysiology
PROC: CLCCHCL (ICD-10-PCS; 2016-11-20 09:45)